=== PATIENT | male | born 1945 | race Caucasian/White ===

== ENCOUNTER 2017-05-30 15:02 | Inpatient (IN) | payer MEDICARE ==
[~2017-05-30] VITALS: Ht 172.7 cm; Wt 111.8 kg
[~2017-05-30 15:02] MED LIST: ACET325 PO; ASPI81 PO; ATOR80TA PO; BISA10R PR; CLON.1 PO; DOCU1CAP39 PO; DUONI INH; Docusate Sod/Senna PO; ENOX40P SQ; GUAI600 PO; LACT20SO4 PO; LEVA750T PO; LISI40TA PO; LORTA5 PO; MAGN30S PO; METO50CR PO; NITR.4 SL; NYSTT TOP; POLY17S PO; PROT40TA PO; SLO-500T2 PO; SPIR50TA21 PO; [UNRECOGNIZED DRUG - CODE] TOP
[2017-05-30 15:05] VITALS: BP 165/84; PULSE 63; RESP 18; TEMP 98.7; O2SAT 99
--- NOTE | 2017-05-30 15:31 | PD ---
HPI Chief Complaint: Neuro Symptoms/ Deficits Time Seen by Provider: 15:23 Travel History International Travel<30 days: No Contact w/Intl Traveler<30days: No Traveled to known affect area: No History of Present Illness HPI 72yo M with PMH of HTN, CAD here with c/o left upper extremity weakness. 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 Still does not feel that it has return to baseline. Pt initially appear to have a left sided facial droop but he did not notice it. Denies any fever, chest pain, sob, n/v, abdominal pain, focal numbness. Denies any history of CVA. PFSH Past Medical History Hx Anticoagulant Therapy: Yes Cardiovascular Problems: Yes (CABG) High Cholesterol: Yes Diminished Hearing: No Hypertension: Yes Myocardial Infarction: Yes Past Surgical History Appendectomy: Yes Coronary Artery Bypass Graft: Yes Other Surgery: Yes (AAA SURGERY apr coiling) Social History Alcohol Use: Yes (3 BEERS 2X A WEEK) Tobacco Use: Yes (1/2PPD) Substance Use: No Allergies-Medications (Allergen,Severity, Reaction): Coded Allergies: No Known Allergies (Verified , 07/01/14) Reported Meds & Prescriptions Reported Meds & Active Scripts Active Reported Diphenhydramine (Diphenhydramine HCl) 25 Mg Cap 25 Mg PO Q6H PRN Tylenol (Acetaminophen) 325 Mg Tab 650 Mg PO Q4H PRN Aspirin Adult Low Strength (Aspirin) 81 Mg Tabdr 81 Mg PO DAILY Aldactone (Spironolactone) 25 Mg Tab 25 Mg PO DAILY Lipitor (Atorvastatin Calcium) 80 Mg Tab 80 Mg PO HS Lisinopril 40 Mg Tab 20 Mg PO DAILY Metoprolol Succinate ER 24 HR (Metoprolol Succinate) 100 Mg Tab 50 Mg PO DAILY Review of Systems Except as stated in HPI: all other systems reviewed are Neg Physical Exam Narrative GENERAL: 72yo M not in distress. SKIN: Focused skin assessment warm/dry. HEAD: Atraumatic. Normocephalic. EYES: Left pupil had cataract surgery and pupil is more superior than right. EOMI. ENT: No nasal bleeding or discharge. Mucous membranes pink and moist. NECK: Trachea midline. No JVD. CARDIOVASCULAR: Regular rate and rhythm. No murmur appreciated. RESPIRATORY: No accessory muscle use. Clear to auscultation. Breath sounds equal bilaterally. GASTROINTESTINAL: Abdomen soft, non-tender, nondistended. MUSCULOSKELETAL: No obvious deformities. No clubbing. No cyanosis. No edema. NEUROLOGICAL: Awake and alert. Slight left facial droop. Sensation equal in bilateral face, arms and legs. Decreased left hand tool/die maker compare to right. Normal speech. PSYCHIATRIC: Appropriate mood and affect; insight and judgment normal. Data Data Last Documented VS Vital Signs Date Time Temp Pulse Resp B/P (MAP) Pulse Ox O2 Delivery O2 Flow Rate FiO2 05/30/17 15:14 56 18 98 Room Air 05/30/17 15:05 98.7 165/84 (111) Orders Orders Ct Brain W/O Iv Contrast(Rout) (05/30/17 ) Complete Blood Count With Diff (05/30/17 15:23) Basic Metabolic Panel (Bmp) (05/30/17 15:23) Prothrombin Time / Inr (Pt) (05/30/17 15:23) Act Partial Throm Time (Ptt) (05/30/17 15:23) Admit Order (Ed Use Only) (05/30/17 18:02) Aspirin (Aspirin) (05/30/17 18:15) Labs Laboratory Tests Test 05/30/17 15:38 White Blood Count 8.1 TH/MM3 Red Blood Count 4.52 MIL/MM3 Hemoglobin 15.8 GM/DL Hematocrit 45.5 % Mean Corpuscular Volume 100.6 FL Mean Corpuscular Hemoglobin 35.0 PG Mean Corpuscular Hemoglobin Concent 34.8 % Red Cell Distribution Width 13.7 % Platelet Count 146 TH/MM3 Mean Platelet Volume 7.6 FL Neutrophils (%) (Auto) 74.1 % Lymphocytes (%) (Auto) 14.1 % Monocytes (%) (Auto) 7.2 % Eosinophils (%) (Auto) 3.7 % Basophils (%) (Auto) 0.9 % Neutrophils # (Auto) 6.0 TH/MM3 Lymphocytes # (Auto) 1.1 TH/MM3 Monocytes # (Auto) 0.6 TH/MM3 Eosinophils # (Auto) 0.3 TH/MM3 Basophils # (Auto) 0.1 TH/MM3 CBC Comment DIFF FINAL Differential Comment Prothrombin Time 11.2 SEC Prothromb Time International Ratio 1.1 RATIO Activated Partial Thromboplast Time 26.8 SEC Blood Urea Nitrogen 21 MG/DL Creatinine 1.57 MG/DL Random Glucose 86 MG/DL Calcium Level 9.2 MG/DL Sodium Level 138 MEQ/L Potassium Level 5.2 MEQ/L Chloride Level 107 MEQ/L Carbon Dioxide Level 26.0 MEQ/L Anion Gap 5 MEQ/L Estimat Glomerular Filtration Rate 44 ML/MIN MDM Medical Decision Making Medical Screen Exam Complete: Yes Emergency Medical Condition: Yes Differential Diagnosis Lacunar infarct vs. TIA vs. ICH Narrative Course 72yo M here with left upper extremity weakness and noticed it when he couldnt turn the page of the newspaper. Pt appears to have a slight left facial droop on exam but does not really noticed it. Still feels weak in left hand. Labs reviewed, no leukocytosis. K in upper limit at 5.2. Creatinine mildly elevated at 1.57. CT brain showed no evidence of acute intracranial pathology. Extensive cerebrovascular disease. Pt given aspirin. Discussed with Dr. Brantley and accepted to her service. Diagnosis Primary Impression: TIA (transient ischemic attack) Qualified Codes: G45.9 - Transient cerebral ischemic attack, unspecified Admitting Information Admitting Physician Requests: Georgia Cavazos DO May 30, 2017 15:31
[2017-05-30 15:43] LABS: BASOPHIL # 0.1 TH/MM3 (0-0.2); BASOPHIL % 0.9 % (0.0-2.0); EOSINOPHIL # 0.3 TH/MM3 (0-0.4); EOSINOPHIL % 3.7 % (0.0-4.0); HEMATOCRIT 45.5 % (39.0-51.0); HEMO FLAGS DIFF FINAL; LYMPH % 14.1 % (9.0-44.0); LYMPHOCYTE # 1.1 TH/MM3 (1.0-4.8); MEAN CELL VOLUME 100.6 FL (80.0-100.0); MEAN CORPUSCULAR HGB CONC 34.8 % (32.0-36.0); MONO % 7.2 % (0.0-8.0); NEUT % 74.1 % (16.0-70.0); PLATELET COUNT 146 TH/MM3 (150-450); RED BLOOD COUNT 4.52 MIL/MM3 (4.50-5.90); RED CELL DISTRIBUTION WIDTH 13.7 % (11.6-17.2); WHITE BLOOD COUNT 8.1 TH/MM3 (4.0-11.0)
[2017-05-30 15:55] LABS: APTT (PATIENT) 26.8 SEC (24.3-30.1); INTERNATIONAL NORMALIZED RATIO 1.1 RATIO; PROTHROMBIN TIME - PATIENT 11.2 SEC (9.8-11.6)
[2017-05-30] MEDS ORDERED: LISI40TA PO (16:00)
[2017-05-30] MEDS ORDERED: TYLE325T PO (16:00)
[2017-05-30] MEDS ORDERED: LIPI80TA PO (16:00)
[2017-05-30] MEDS ORDERED: DIPH25CA PO (16:00)
[2017-05-30] MEDS ORDERED: SPIR25 PO (16:00)
[2017-05-30] MEDS ORDERED: METO1TAB43 PO (16:00)
[2017-05-30] MEDS ORDERED: ASPI81TA16 PO (16:00)
[2017-05-30 16:05] LABS: POTASSIUM 5.2 MEQ/L (3.5-5.1)
--- NOTE | 2017-05-30 17:42 | RADRPT ---
EXAM DATE/TIME: 05/30/2017 17:30 [facility] COMPARISON: No previous studies available for comparison. INDICATIONS : Left upper extremity weakness today. RADIATION DOSE: 50.97 CTDIvol (mGy) MEDICAL HISTORY : Cardiovascular disease. Hypertension. SURGICAL HISTORY : Appendectomy. ENCOUNTER: Initial ACUITY: 1 day PAIN SCALE: 0/10 LOCATION: Bilateral head TECHNIQUE: Multiple contiguous axial images were obtained of the head. Using automated exposure control and adj ustment of the mA and/or kV according to patient size, radiation dose was kept as low as reasonably a chievable to obtain optimal diagnostic quality images. DICOM format image data is available electro nically for review and comparison. FINDINGS: Noncontrast axial head CT demonstrates the ventricles to be normal in size and configuration with a n ormal sulcal pattern. No acute intracranial hemorrhage, acute cortical infarction, mass or midline sh ift is seen. There is decreased density in the periventricular white matter consistent with small ves neptali vascular disease not unexpected in a patient of this age. Posterior fossa structures are unremark able. There is severe calcification and dolichoectasia of the vertebrobasilar system. There is also e xtensive disease involving the carotid siphons bilaterally. Bone windows are unremarkable. CONCLUSION: 1. No evidence of acute intracranial pathology. No masses are identified. 2. Extensive cerebrovascular disease as above Conner Santa MD on May 30, 2017 at 17:37 Board Certified Radiologist. This report was verified electronically.
[2017-05-30] MEDS ORDERED: GLUCAGON 1 MG/ML VIAL OTHER PRN (18:15)
[2017-05-30] MEDS ORDERED: DEXTROSE 50% IN WATER 50 ML VIAL(D50) IV PUSH PRN (18:15)
[2017-05-30] MEDS ORDERED: SODIUM CHLORIDE 0.9% FLUSH 10 ML FLUSH IV FLUSH PRN (18:15)
[2017-05-30] MEDS ORDERED: ASPIRIN 325 MG TAB PO ONE (18:15)
[2017-05-30] MEDS: SODIUM CHLOR 0.9% 1000 ML INJ 1,000 ML IV SCH (18:22)
--- NOTE | 2017-05-30 18:55 | HHI.HP ---
[facility] Admission Diagnosis TIA Diagnoses: Travel History International Travel<30 Days: No Contact w/Intl Traveler <30 Da: No Traveled to Known Affected Are: No History of Present Illness 72-year-old male with a past medical history significant for hypertension, hyperlipidemia and coronary artery disease presents with left upper extremity weakness. The patient reports he was trying to read the paper this morning when he couldn't make his left hand grasp objects or turning them page. He reports the weakness is improving however he still lacks strength in that hand. CT of the head was negative for acute process. Patient is alert and oriented 3. Review of Systems Denies fever or chills Denies blurry vision, otorrhea, rhinorrhea Denies sore throat and cough No chest pain, palpitations, shortness of breath No abdominal pain Denies constipation/diarrhea/nausea/vomiting Left hand weakness No rashes Past Family Social History Past Medical History Coronary artery disease Hypertension Hyperlipidemia Past Surgical History Endovascular AAA repair/revision on 05/16/17 at the [facility] Endovascular AAA repair 9 years ago with stent placement CABG 4 in 1984 Right ankle surgery Right biceps tendon repair Reported Medications Reported Meds & Active Scripts Active Reported Diphenhydramine (Diphenhydramine HCl) 25 Mg Cap 25 Mg PO Q6H PRN Tylenol (Acetaminophen) 325 Mg Tab 650 Mg PO Q4H PRN Aspirin Adult Low Strength (Aspirin) 81 Mg Tabdr 81 Mg PO DAILY Aldactone (Spironolactone) 25 Mg Tab 25 Mg PO DAILY Lipitor (Atorvastatin Calcium) 80 Mg Tab 80 Mg PO HS Lisinopril 40 Mg Tab 20 Mg PO DAILY Metoprolol Succinate ER 24 HR (Metoprolol Succinate) 100 Mg Tab 50 Mg PO DAILY Allergies: Coded Allergies: No Known Allergies (Verified , 07/01/14) Family History Mother with coronary artery disease. Social History Smokes 5-6 cigarettes daily. Has been smoking since 16 years of age. Drinks approximately 3 beers 2 times a week. Denies illicit drugs. Physical Exam Vital Signs Vital Signs Date Time Temp Pulse Resp B/P (MAP) Pulse Ox O2 Delivery O2 Flow Rate FiO2 05/30/17 15:14 56 18 98 Room Air 05/30/17 15:05 98.7 63 18 165/84 (111) 99 Physical Exam GENERAL: Obese male sitting up in bed SKIN: No rashes, ecchymoses or lesions. Cool and dry. HEAD: Atraumatic. Normocephalic. No temporal or scalp tenderness. EYES: Pupils equal round and reactive. Extraocular motions intact. No scleral icterus. No injection or drainage. ENT: Nose without bleeding, purulent drainage or septal hematoma. Throat without erythema, tonsillar hypertrophy or exudate. Uvula midline. Airway patent. NECK: Trachea midline. No JVD or lymphadenopathy. Supple, nontender, no meningeal signs. CARDIOVASCULAR: Regular rate and rhythm without murmurs, gallops, or rubs. RESPIRATORY: Clear to auscultation. Breath sounds equal bilaterally. No wheezes , rales, or rhonchi. GASTROINTESTINAL: Abdomen soft, non-tender, nondistended. No hepato-splenomegaly , or palpable masses. No guarding. MUSCULOSKELETAL: Left lower extremity with nonpitting edema, patient reports this is unchanged from baseline and secondary to vein harvest in that leg. No joint tenderness, effusion, or edema noted. No calf tenderness. NEUROLOGICAL: Awake and alert. Cranial nerves II through XII intact. Normal speech. 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 Mild left-sided mouth droop. Laboratory Laboratory Tests Test 05/30/17 15:38 05/30/17 18:05 White Blood Count 8.1 Red Blood Count 4.52 Hemoglobin 15.8 Hematocrit 45.5 Mean Corpuscular Volume 100.6 Mean Corpuscular Hemoglobin 35.0 Mean Corpuscular Hemoglobin Concent 34.8 Red Cell Distribution Width 13.7 Platelet Count 146 Mean Platelet Volume 7.6 Neutrophils (%) (Auto) 74.1 Lymphocytes (%) (Auto) 14.1 Monocytes (%) (Auto) 7.2 Eosinophils (%) (Auto) 3.7 Basophils (%) (Auto) 0.9 Neutrophils # (Auto) 6.0 Lymphocytes # (Auto) 1.1 Monocytes # (Auto) 0.6 Eosinophils # (Auto) 0.3 Basophils # (Auto) 0.1 CBC Comment DIFF FINAL Differential Comment Prothrombin Time 11.2 Prothromb Time International Ratio 1.1 Activated Partial Thromboplast Time 26.8 Blood Urea Nitrogen 21 Creatinine 1.57 Random Glucose 86 Calcium Level 9.2 Sodium Level 138 Potassium Level 5.2 Chloride Level 107 Carbon Dioxide Level 26.0 Anion Gap 5 Estimat Glomerular Filtration Rate 44 Result Diagram: 05/30/17153705/30/171537 Caprini VTE Risk Assessment Caprini VTE Risk Assessment: Mod/High Risk (score >= 2) Caprini Risk Assessment Model Point Value = 1 Point Value = 2 Point Value = 3 Point Value = 5 Age 41-60 Minor surgery BMI > 25 kg/m2 Swollen legs Varicose veins or History of unexplained or recurrent spontaneous Oral contraceptives or hormone replacement Sepsis (< 1 month) Serious lung disease, including pneumonia (< 1 month) Abnormal pulmonary function Acute myocardial infarction Congestive heart failure (< 1 month) History of inflammatory bowel disease Medical patient at bed rest Age 61-74 Arthroscopic surgery Major open surgery (> 45 min) Laparoscopic surgery (> 45 min) Malignancy Confined to bed (> 72 hours) Immobilizing plaster cast Central venous access Age >= 75 History of VTE Family history of VTE Factor V Leiden Prothrombin 27276H Lupus anticoagulant Anticardiolipin antibodies Elevated serum homocysteine Heparin-induced thrombocytopenia Other congenital or acquired thrombophilia Stroke (< 1 month) Elective arthroplasty Hip, pelvis, or leg fracture Acute spinal cord injury (< 1 month) Prophylaxis Regimen Total Risk Factor Score Risk Level Prophylaxis Regimen 0-1 Low Early ambulation 2 Moderate Order ONE of the following: *Sequential Compression Device (SCD) *Heparin 5000 units SQ BID 3-4 Higher Order ONE of the following medications: *Heparin 5000 units SQ TID *Enoxaparin/Lovenox 40 mg SQ daily (WT < 150 kg, CrCl > 30 mL/min) *Enoxaparin/Lovenox 30 mg SQ daily (WT < 150 kg, CrCl > 10-29 mL/min) *Enoxaparin/Lovenox 30 mg SQ BID (WT < 150 kg, CrCl > 30 mL/min) AND/OR *Sequential Compression Device (SCD) 5 or more Highest Order ONE of the following medications: *Heparin 5000 units SQ TID (Preferred with Epidurals) *Enoxaparin/Lovenox 40 mg SQ daily (WT < 150 kg, CrCl > 30 mL/min) *Enoxaparin/Lovenox 30 mg SQ daily (WT < 150 kg, CrCl > 10-29 mL/min) *Enoxaparin/Lovenox 30 mg SQ BID (WT < 150 kg, CrCl > 30 mL/min) AND *Sequential Compression Device (SCD) Assessment and Plan Assessment and Plan 72-year-old male with a past medical history of hypertension, coronary artery disease and hyperlipidemia presents with left hand weakness since this morning. 1. TIA/CVA CT head negative for acute process MRI, MRA, carotid ultrasound pending Echo pending Neurology consulted, appreciate recommendations 2. XOCHITL Creatinine 1.57, was 1.1 in 2014 IV fluid hydration Avoid nephrotoxic agents Follow-up BMP 3. Hypertension/hyperlipidemia/CAD Continue home medications FEN Heart healthy diet once swallow study completed NS at 70 cc/hr Electrolytes: Monitor and replete prn Heparin Case discussed with ER physician Jena Brantley MD May 30, 2017 18:55
[2017-05-30 19:11] VITALS: BP 130/79; PULSE 56; RESP 19; O2SAT 97
--- NOTE | 2017-05-30 19:38 | RADRPT ---
EXAM DATE/TIME: 05/30/2017 18:41 [facility] COMPARISON: No previous studies available for comparison. INDICATIONS : Transient ischemic attack. MEDICAL HISTORY : Hypercholesterolemia. Hypertension. Myocardial infarction. Anticoagulant therapy. Coronary artery dis ease. SURGICAL HISTORY : Appendectomy. CABG. Abdominal aortic aneurysm repair. Right arm surgery. Right ankle surgery. ENCOUNTER: Initial ACUITY: 1 day PAIN SCORE: 0/10 LOCATION: Bilateral neck PEAK SYSTOLIC VELOCITIES (cm/sec): ICA/CCA RATIO: Right: 1.2 Left: 1.0 ICA: Right: 82 Left: 71 CCA: Right: 71 Left: 70 ECA: Right: 65 Left: 87 VERTEBRAL: Right: 41 antegrade Left: 34 antegrade Elevated flow velocities and ICA/CCA ratios have been found to correlate with increased degrees of vessel stenosis, calculated as percentage of diameter relative to a normal segment of distal ICA/CCA FINDINGS: RIGHT CAROTID: No significant stenosis is visualized. The waveforms are within normal limits. LEFT CAROTID: No significant stenosis is visualized. The waveforms are within normal limits. VERTEBRAL ARTERIES: Antegrade flow is seen in both vertebral arteries. MISCELLANEOUS: None. CONCLUSION: No hemodynamically significant stenosis. Manuel Curry MD on May 30, 2017 at 19:35 Board Certified Radiologist. This report was verified electronically.
[2017-05-30 20:30] LABS: HEMOGLOBIN A1a 1.1 %; HEMOGLOBIN A1b 0.8 %; HEMOGLOBIN Ao 86.7 %; HEMOGLOBIN F 0.9 %; HEMOGLOBIN LA1C 1.8 %; HEMOGLOBIN P3 3.4 %
[2017-05-30 20:54] VITALS: BP 128/83; PULSE 58; RESP 17; TEMP 98; O2SAT 96
[2017-05-30] MEDS: SODIUM CHLORIDE 0.9% FLUSH 10 ML FLUSH IV FLUSH SCH (21:00)
[2017-05-30] MEDS: INSULIN ASPART SUPPLEMENTAL SCALE SQ SCH (21:00)
[2017-05-30 21:05] VITALS: PULSE 53
--- NOTE | 2017-05-30 21:09 | RADRPT ---
EXAM DATE/TIME: 05/30/2017 20:09 [facility] COMPARISON: No previous studies available for comparison. INDICATIONS : MRI clearance. MEDICAL HISTORY : None. SURGICAL HISTORY : Coronary artery stent. AAA repair. ENCOUNTER: Initial ACUITY: 1 day PAIN SCORE: 0/10 LOCATION: Bilateral abdomen. FINDINGS: Aortic stent graft is noted. There is an embolization coil in the expected region of the left interna l iliac artery. The gallbladder is filled with calcified gallstones. Degenerative changes are noted t hroughout the lumbar and lower thoracic spine. Degenerative changes also involving the hips. CONCLUSION: 1. Embolization coil in the expected region of the left internal iliac artery. 2. Aortic stent graft noted. 3. Cholelithiasis. 4. Degenerative changes involving lumbar spine and lower thoracic spine and bilateral hips. Manuel Curry MD on May 30, 2017 at 21:04 Board Certified Radiologist. This report was verified electronically.
[2017-05-30] MEDS: HEPARIN SODIUM - SQ 10,000 UNITS/ML VIAL SQ SCH (21:24)
[2017-05-30] MEDS: ATORVASTATIN 80 MG TAB PO SCH (21:24)
[2017-05-31] VITALS (14 sets, daily range): BP systolic 107–143; BP diastolic 65–88; PULSE 51–64; RESP 16–18; TEMP 97.7–99.1; O2SAT 94–96
[2017-05-31 05:32] LABS: AUTOMATED NEUTROPHIL # 4.1 TH/MM3 (1.8-7.7); BASOPHIL # 0.1 TH/MM3 (0-0.2); BASOPHIL % 0.8 % (0.0-2.0); EOSINOPHIL # 0.3 TH/MM3 (0-0.4); EOSINOPHIL % 4.6 % (0.0-4.0); HEMATOCRIT 42.3 % (39.0-51.0); HEMO FLAGS DIFF FINAL; LYMPH % 22.9 % (9.0-44.0); LYMPHOCYTE # 1.5 TH/MM3 (1.0-4.8); MEAN CORPUSCULAR HEMOGLOBIN 34.1 PG (27.0-34.0); MEAN CORPUSCULAR HGB CONC 34.1 % (32.0-36.0); MONO % 8.3 % (0.0-8.0); NEUT % 63.4 % (16.0-70.0); PLATELET COUNT 119 TH/MM3 (150-450); RED BLOOD COUNT 4.22 MIL/MM3 (4.50-5.90); RED CELL DISTRIBUTION WIDTH 13.9 % (11.6-17.2); WHITE BLOOD COUNT 6.4 TH/MM3 (4.0-11.0)
[2017-05-31] MEDS: HEPARIN SODIUM - SQ 10,000 UNITS/ML VIAL SQ SCH ×3 (05:58→21:35)
[2017-05-31 06:07] LABS: HDL CHOLESTEROL 32.7 MG/DL (40.0-60.0)
[2017-05-31 06:12] LABS: BICARBONATE 25.6 MEQ/L (21.0-32.0)
[2017-05-31 06:13] LABS: POTASSIUM 4.6 MEQ/L (3.5-5.1)
[2017-05-31] MEDS: INSULIN ASPART SUPPLEMENTAL SCALE SQ SCH ×4 (08:00→21:00)
[2017-05-31] MEDS: SODIUM CHLORIDE 0.9% FLUSH 10 ML FLUSH IV FLUSH SCH ×2 (09:00→21:35)
[2017-05-31] MEDS: METOPROLOL SUCCINATE 50 MG EXTENDED RELEASE TAB PO SCH (09:08)
[2017-05-31] MEDS: LISINOPRIL 20 MG TAB PO SCH (09:08)
[2017-05-31] MEDS: SPIRONOLACTONE 25 MG TAB PO SCH (09:08)
[2017-05-31] MEDS: SODIUM CHLOR 0.9% 1000 ML INJ 1,000 ML IV SCH ×2 (09:09→21:34)
[2017-05-31] MEDS ORDERED: INFLUENZA VIRUS VACCINE (QUADRIVALENT) 0.5 ML SYR IM ONE (10:00)
[2017-05-31 12:44] LABS: MAGNESIUM 1.5 MG/DL (1.5-2.5)
[2017-05-31] MEDS: CLOPIDOGREL 75 MG TAB PO SCH (14:53)
--- NOTE | 2017-05-31 15:02 | ECHRPT ---
Indication: CVA/TIA CONCLUSIONS Normal left ventricular size. Wall thickness is normal. The left ventricular systolic function is mildly reduced with an estimated ejection fraction in the range of 45- 50%. Mitral annular calcification is present. Trace mitral valve regurgitation. Aortic valve sclerosis is present. The pulmonary valve is not well visualized. BP: 118 / 65 HR: 82 Rhythm: MEASUREMENTS (Male / Female) Normal Values Technical Quality:Good 2D ECHO LV Diastolic Diameter PLAX 5.7 cm 4.2 - 5.9 / 3.9 - 5.3 cm LV Systolic Diameter PLAX 4.6 cm IVS Diastolic Thickness 1.1 cm 0.6 - 1.0 / 0.6 - 0.9 cm LVPW Diastolic Thickness 0.9 cm 0.6 - 1.0 / 0.6 - 0.9 cm LV Relative Wall Thickness 0.3 M-MODE Aortic Root Diameter MM 3.3 cm AV Cusp Separation MM 2.2 cm DOPPLER Mitral E Point Velocity 120.0 cm/s Mitral A Point Velocity 97.5 cm/s Mitral E to A Ratio 1.2 TR Peak Velocity 261.0 cm/s TR Peak Gradient 27.2 mmHg FINDINGS LEFT VENTRICLE Normal left ventricular size. Wall thickness is normal. The left ventricular systolic function is mildly reduced with an estimated ejection fraction in the range of 45- 50%. RIGHT VENTRICLE Normal right ventricular size and systolic function. LEFT ATRIUM The left atrial size is normal. RIGHT ATRIUM The right atrial size is normal. ATRIAL SEPTUM Normal atrial septal thickness without atrial level shunting by limited color doppler interrogation. AORTA The aortic root and proximal ascending aorta are normal in size on limited imaging. MITRAL VALVE Mitral annular calcification is present. Trace mitral valve regurgitation. AORTIC VALVE Aortic valve sclerosis is present. TRICUSPID VALVE Structurally normal tricuspid valve. No tricuspid valve stenosis or regurgitation. PULMONARY VALVE The pulmonary valve is not well visualized. VESSELS The inferior vena cava is normal in size. PERICARDIUM No pericardial effusion. Murtaza Montelongo MD (Electronically Signed) Final Date:31 May 2017 15:01
[2017-05-31] MEDS ORDERED: ATORVASTATIN 10 MG TAB PO ONE (16:15)
--- NOTE | 2017-05-31 16:17 | MB ---
cc: MARIA LUZ MCINTYRE M.D. DATE OF CONSULTATION: 05/31/2017 REASON FOR CONSULTATION: HISTORY OF PRESENT ILLNESS: The patient is a 72-year-old seen in neurological evaluation because of left upper extremity weakness. The patient describes that he had symptoms yesterday morning and he is not sure if he woke up but this way or if his symptoms evolved after he had a bowl of cereal. The symptoms have persisted. He denies prior history of a stroke or TIA but describes that some couple of years ago he had some generalized weakness and apparently there was no clear diagnosis for that. He has history of a hypertension, coronary artery disease, hyperlipidemia, history of CABG many years ago. ACTIVE MEDICATIONS: 1. Lisinopril 2. Lipitor 3. Aspirin 4. Aldactone. MEDICATIONS AT HOME: 1. Baby aspirin daily. PHYSICAL EXAMINATION: An alert oriented man. He does have slight left facial weakness and very mild but definitive left hand weakness. His hand is flexor and fine single coordination and extensor finger movements are mild to moderately impaired. Interestingly he has right ulnar innervated hand muscle wasting but not on the left and evidently this is chronic. His right pupil is larger and the left is slightly irregular and this is from bilateral eye/cataract surgery in the past. He has a left plantar extensor response. The right is possibly extensor as well. Muscle stretch reflexes were 1+, but diminished at the ankles. IMAGING STUDIES: The CT brain and carotid ultrasound studies were unremarkable. ASSESSMENT Left face and upper extremity weakness likely from an ischemic cerebrovascular event. He has been on aspirin. Other studies have been requested including MRI and it is unclear if he can have an MRI or not. I am going to add Plavix. Echocardiogram requested. I am looking to see if he has had an EEG. Reportedly he has been in sinus rhythm. LDL is 88. Would suggest continuing statin and the goal would be to bring LDL below 70 or even below 60. SCDs. Thank you for asking us to assist in his care. I will follow him with you. Maria Luz Mcintyre MD [facility] /2:33 PM /3:46 PM
--- NOTE | 2017-05-31 16:40 | HHI.PR ---
Subjective Remarks 72-year-old male with a past medical history significant for hypertension, hyperlipidemia and coronary artery disease presents with left upper extremity weakness. The patient reports he was trying to read the paper this morning when he couldn't make his left hand grasp objects or turning them page. He reports the weakness is improving however he still lacks strength in that hand. CT of the head was negative for acute process. Patient is alert and oriented 3. Follow up on patient with LUE weakness. Patient seen and examined. Patient continues to have weakness in the LUE with slight improvement. Patient denies any acute medical complaints. MRI cervical spine ordered and imaging dept trying to ascertain if patient is able to have MRI study done s/p embolization coil. He denies any dizziness, lightheadedness, vision changes or headache. He denies any chest pain or shortness of breath. Denies any nausea, vomiting or abdominal pain. Objective Vitals Vital Signs Date Time Temp Pulse Resp B/P (MAP) Pulse Ox O2 Delivery O2 Flow Rate FiO2 05/31/17 15:28 98.3 57 18 134/78 (96) 94 05/31/17 10:57 97.7 51 16 137/74 (95) 94 05/31/17 07:34 59 05/31/17 07:30 98.5 56 18 118/65 (82) 96 05/31/17 05:56 98.2 54 18 122/72 (89) 96 05/31/17 04:22 55 18 119/69 (86) 96 05/31/17 04:08 56 05/31/17 01:41 98.1 58 17 107/67 (80) 96 05/31/17 00:06 54 05/30/17 21:05 53 05/30/17 20:54 98.0 58 17 128/83 (98) 96 05/30/17 19:11 56 19 130/79 (96) 97 Room Air I/O 05/30/17 05/30/17 05/30/17 05/31/17 05/31/17 05/31/17 07:00 15:00 23:00 07:00 15:00 23:00 Intake Total 240 ml 1000 ml Balance 240 ml 1000 ml Intake Oral 240 ml IV Total 1000 ml # Voids 2 Result Diagram: 05/31/17 0418 05/31/17 0418 Other Results Laboratory Tests Test 05/30/17 15:38 05/30/17 18:05 05/31/17 04:18 White Blood Count 8.1 TH/MM3 6.4 TH/MM3 Red Blood Count 4.52 MIL/MM3 4.22 MIL/MM3 Hemoglobin 15.8 GM/DL 14.4 GM/DL Hematocrit 45.5 % 42.3 % Mean Corpuscular Volume 100.6 FL 100.0 FL Mean Corpuscular Hemoglobin 35.0 PG 34.1 PG Mean Corpuscular Hemoglobin Concent 34.8 % 34.1 % Red Cell Distribution Width 13.7 % 13.9 % Platelet Count 146 TH/MM3 119 TH/MM3 Mean Platelet Volume 7.6 FL 7.6 FL Neutrophils (%) (Auto) 74.1 % 63.4 % Lymphocytes (%) (Auto) 14.1 % 22.9 % Monocytes (%) (Auto) 7.2 % 8.3 % Eosinophils (%) (Auto) 3.7 % 4.6 % Basophils (%) (Auto) 0.9 % 0.8 % Neutrophils # (Auto) 6.0 TH/MM3 4.1 TH/MM3 Lymphocytes # (Auto) 1.1 TH/MM3 1.5 TH/MM3 Monocytes # (Auto) 0.6 TH/MM3 0.5 TH/MM3 Eosinophils # (Auto) 0.3 TH/MM3 0.3 TH/MM3 Basophils # (Auto) 0.1 TH/MM3 0.1 TH/MM3 CBC Comment DIFF FINAL DIFF FINAL Differential Comment Prothrombin Time 11.2 SEC Prothromb Time International Ratio 1.1 RATIO Activated Partial Thromboplast Time 26.8 SEC Blood Urea Nitrogen 21 MG/DL 20 MG/DL Creatinine 1.57 MG/DL 1.29 MG/DL Random Glucose 86 MG/DL 81 MG/DL Calcium Level 9.2 MG/DL 8.4 MG/DL Sodium Level 138 MEQ/L 141 MEQ/L Potassium Level 5.2 MEQ/L 4.6 MEQ/L Chloride Level 107 MEQ/L 109 MEQ/L Carbon Dioxide Level 26.0 MEQ/L 25.6 MEQ/L Anion Gap 5 MEQ/L 6 MEQ/L Estimat Glomerular Filtration Rate 44 ML/MIN 55 ML/MIN Hemoglobin A1c 4.8 % Phosphorus Level 2.9 MG/DL Magnesium Level 1.5 MG/DL Triglycerides Level 182 MG/DL Cholesterol Level 157 MG/DL LDL Cholesterol 88 MG/DL HDL Cholesterol 32.7 MG/DL Cholesterol/HDL Ratio 4.80 RATIO Thyroid Stimulating Hormone 3rd Gen 2.950 uIU/ML Imaging Last Impressions Head CT 05/30/17 0000 Signed Impressions: Service Date/Time: Tuesday, May 30, 2017 17:30 - CONCLUSION: 1. No evidence of acute intracranial pathology. No masses are identified. 2. Extensive cerebrovascular disease as above Conner Santa MD Carotid Artery Ultrasound 05/30/17 0000 Signed Impressions: Service Date/Time: Tuesday, May 30, 2017 18:41 - CONCLUSION: No hemodynamically significant stenosis. Manuel Curry MD Abdomen X-Ray 05/30/17 0000 Signed Impressions: Service Date/Time: Tuesday, May 30, 2017 20:09 - CONCLUSION: 1. Embolization coil in the expected region of the left internal iliac artery. 2. Aortic stent graft noted. 3. Cholelithiasis. 4. Degenerative changes involving lumbar spine and lower thoracic spine and bilateral hips. Manuel Curry MD Objective Remarks GENERAL: Well-developed well-nourished obese male, INAD. Awake and alert. No facial droop or slurred speech appreciated. SKIN: No rashes, ecchymoses or lesions. Cool and dry. HEAD: Atraumatic. Normocephalic. EYES: Pupils equal round and reactive. Extraocular motions intact. No scleral icterus. No injection or drainage. ENT: Nose without bleeding or purulent drainage. Airway patent. MMM. NECK: Trachea midline. No JVD or lymphadenopathy. Supple, nontender, no meningeal signs. CARDIOVASCULAR: Regular rate and rhythm without murmurs, gallops, or rubs. RESPIRATORY: Clear to auscultation. Breath sounds equal bilaterally. No wheezes , rales, or rhonchi. GASTROINTESTINAL: Abdomen soft, non-tender, nondistended. No hepato-splenomegaly , or palpable masses. No guarding. MUSCULOSKELETAL: Left lower extremity with nonpitting edema, patient reports this is unchanged from baseline and secondary to vein harvest in that leg. NEUROLOGICAL: Awake and alert. Able to move all extremities spontaneously. Motor and sensory grossly intact except for a weak left upper extremity 3/5. Normal speech. Insight and judgment is good Mood and behavior is appropriate Procedures NONE Medications and IVs Current Medications Medications (Trade) Dose Ordered Sig/Vivian Route Start Time Stop Time Status Last Admin (NS Flush) 2 ml BID IV FLUSH 05/30/17 21:00 (NS Flush) 2 ml UNSCH PRN IV FLUSH 05/30/17 18:15 Sodium Chloride 1,000 ml @ 70 mls/hr [id number] IV 05/30/17 18:05 05/31/17 09:09 (NovoLOG SUPPLEMENTAL SCALE) 1 ACHS SQ 05/30/17 21:00 (D50w (Vial) Inj) 50 ml UNSCH PRN IV PUSH 05/30/17 18:15 (Glucagon Inj) 1 mg UNSCH PRN OTHER 05/30/17 18:15 (Heparin Inj) 5,000 units Q8H SQ 05/30/17 22:00 05/31/17 14:52 (Lipitor) 80 mg HS PO 05/30/17 21:00 05/30/17 21:24 (Aldactone) 25 mg DAILY PO 05/31/17 09:00 05/31/17 09:08 (Prinivil) 20 mg DAILY PO 05/31/17 09:00 05/31/17 09:08 (Toprol Xl) 50 mg DAILY PO 05/31/17 09:00 05/31/17 09:08 (Aspirin) 325 mg DAILY PO 06/01/17 09:00 (Plavix) 75 mg DAILY PO 05/31/17 14:45 05/31/17 14:53 (Lipitor) 10 mg DAILY PO 06/01/17 09:00 UNV A/P Assessment and Plan 72-year-old male with a past medical history of hypertension, coronary artery disease and hyperlipidemia presents with left hand weakness since this morning. 1. TIA/CVA CT head negative for acute process MRI, MRA pending. MRI cervical spine pending. Discussed with Madison WOODSON, radiology attempting to obtain clearance to proceed forward with imaging study s /p embolization coil Carotid ultrasound negative Echo showing mildly reduced systolic function with an estimated ejection fraction in the range of 45-50%. Neurology consulted, appreciate recommendations. - likely from an ischemic cerebrovascular event. Continue on aspirin 325mg daily. Started on Plavix 75mg daily. Continue on statin therapy. Hgb A1c 4.[address] eval completed, regular diet with thin liquids recommended Evaluated by PT and OT who recommended outpatient OT 2. XOCHITL Creatinine 1.57, was 1.1 in 2015 Improved after IVF hydration Avoid nephrotoxic agents 3. Hypertension/hyperlipidemia/CAD Continue home medications FEN Heart healthy diet Electrolytes: Monitor and replete prn Heparin Discussed with patient, nursing staff, Dr. Cuevas and Dr. Mcintyre Needs MRI not available not done yet Discharge Planning Pending neurology clearance Attending Statement The exam, history, and the medical decision-making described in the above note were completed with the assistance of the mid-level provider. I reviewed and agree with the findings presented. I attest that I had a [id number] encounter with the patient on the same day, and personally performed and documented my assessment and findings in the medical record. Marlena Veloz May 31, 2017 16:40 Donavon Cuevas DO May 31, 2017 16:43
[2017-05-31] MEDS ORDERED: diphenhydrAMINE HCL 25 MG CAP PO PRN (17:30)
[2017-05-31] MEDS: ATORVASTATIN 80 MG TAB PO SCH (21:34)
--- NOTE | 2017-05-31 22:42 | EKG ---
Date Performed: 05/31/2017 Time Performed: 16:38:47 PTAGE: 72 years EKG: SINUS BRADYCARDIA POSSIBLE INFERIOR MYOCARDIAL INFARCTION BORDERLINE ECG PREVIOUS TRACING : 07/01/2014 13.12 Compared to prior tracing no significant change DOCTOR: Yessica Espinosa Interpretating Date/Time 05/31/2017 22:41:43
[2017-06-01] VITALS (10 sets, daily range): BP systolic 122–148; BP diastolic 71–82; PULSE 52–65; RESP 18–24; TEMP 97.4–98.8; O2SAT 93–95
[2017-06-01] MEDS: HEPARIN SODIUM - SQ 10,000 UNITS/ML VIAL SQ SCH ×3 (05:14→20:59)
[2017-06-01] MEDS: INSULIN ASPART SUPPLEMENTAL SCALE SQ SCH ×4 (08:00→21:00)
--- NOTE | 2017-06-01 08:53 | HHI.PR ---
Subjective Remarks Follow up on patient with LUE weakness. Patient seen and examined. Patient reports weakness left upper extremity is improved some. He denies any new medical complaints. Denies any new onset weakness. Denies any dizziness, headaches, lightheadedness, numbness/tingling or vision changes. Denies any fever or chills. Denies any chest pain or shortness of breath. Denies any nausea, vomiting or abdominal pain. He is requesting ketchup with his breakfast. Objective Vitals Vital Signs Date Time Temp Pulse Resp B/P (MAP) Pulse Ox O2 Delivery O2 Flow Rate FiO2 06/01/17 07:20 98.5 52 22 148/80 (102) 94 06/01/17 03:47 98.0 56 18 122/73 (89) 95 06/01/17 00:00 57 05/31/17 23:28 99.1 58 18 124/69 (87) 95 05/31/17 20:13 98.5 64 18 143/88 (106) 95 05/31/17 19:40 56 05/31/17 16:00 54 05/31/17 15:28 98.3 57 18 134/78 (96) 94 05/31/17 12:05 58 05/31/17 10:57 97.7 51 16 137/74 (95) 94 I/O 05/31/17 05/31/17 05/31/17 06/01/17 06/01/17 06/01/17 07:00 15:00 23:00 07:00 15:00 23:00 Intake Total 240 ml 1000 ml Balance 240 ml 1000 ml Intake Oral 240 ml IV Total 1000 ml # Voids 2 Result Diagram: 05/31/17 0418 05/31/17 0418 Imaging Last Impressions Head CT 05/30/17 0000 Signed Impressions: Service Date/Time: Tuesday, May 30, 2017 17:30 - CONCLUSION: 1. No evidence of acute intracranial pathology. No masses are identified. 2. Extensive cerebrovascular disease as above Conner Santa MD Carotid Artery Ultrasound 05/30/17 0000 Signed Impressions: Service Date/Time: Tuesday, May 30, 2017 18:41 - CONCLUSION: No hemodynamically significant stenosis. Manuel Curry MD Abdomen X-Ray 05/30/17 0000 Signed Impressions: Service Date/Time: Tuesday, May 30, 2017 20:09 - CONCLUSION: 1. Embolization coil in the expected region of the left internal iliac artery. 2. Aortic stent graft noted. 3. Cholelithiasis. 4. Degenerative changes involving lumbar spine and lower thoracic spine and bilateral hips. Manuel Curry MD Objective Remarks GENERAL: Well-developed well-nourished obese male, INAD. Awake and alert. Sitting up in bed eating breakfast. No facial droop or slurred speech appreciated. SKIN: Warm and dry. HEAD: Atraumatic. Normocephalic. EYES: Extraocular motions intact. No scleral icterus. No injection or drainage. ENT: Nose without bleeding or purulent drainage. Airway patent. MMM. NECK: Trachea midline. CARDIOVASCULAR: Bradycardic. (+)murmur present. RESPIRATORY: Clear to auscultation. Breath sounds equal bilaterally. No wheezes , rales, or rhonchi. GASTROINTESTINAL: Abdomen soft, non-tender, nondistended. No hepato-splenomegaly , or palpable masses. No guarding. MUSCULOSKELETAL: Left lower extremity with nonpitting edema, patient reports this is unchanged from baseline and secondary to vein harvest in that leg. NEUROLOGICAL: Awake and alert. Able to move all extremities spontaneously. Motor and sensory grossly intact except for a weak left upper extremity 4/5, improving. Normal speech. Procedures NONE Medications and IVs Current Medications Medications (Trade) Dose Ordered Sig/Vivian Route Start Time Stop Time Status Last Admin (NS Flush) 2 ml BID IV FLUSH 05/30/17 21:00 05/31/17 21:35 (NS Flush) 2 ml UNSCH PRN IV FLUSH 05/30/17 18:15 (NovoLOG SUPPLEMENTAL SCALE) 1 ACHS SQ 05/30/17 21:00 (D50w (Vial) Inj) 50 ml UNSCH PRN IV PUSH 05/30/17 18:15 (Glucagon Inj) 1 mg UNSCH PRN OTHER 05/30/17 18:15 (Heparin Inj) 5,000 units Q8H SQ 05/30/17 22:00 06/01/17 05:14 (Lipitor) 80 mg HS PO 05/30/17 21:00 05/31/17 21:34 (Aldactone) 25 mg DAILY PO 05/31/17 09:00 12/5/17 09:08 (Prinivil) 20 mg DAILY PO 05/31/17 09:00 05/31/17 09:08 (Toprol Xl) 50 mg DAILY PO 05/31/17 09:00 05/31/17 09:08 (Aspirin) 325 mg DAILY PO 06/01/17 09:00 (Plavix) 75 mg DAILY PO 05/31/17 14:45 05/31/17 14:53 (Benadryl) 25 mg HS PRN PO 05/31/17 17:30 05/31/17 21:35 A/P Assessment and Plan 72-year-old male with a past medical history of hypertension, coronary artery disease and hyperlipidemia presents with left hand weakness since this morning. 1. TIA/CVA CT head negative for acute process MRI, MRA pending. MRI cervical spine pending. Radiology [facility] to [facility] forward with imaging study s/p embolization coil Carotid ultrasound negative Echo showing mildly reduced systolic function with an estimated ejection fraction in the range of 45-50%. Neurology consulted, appreciate recommendations. - likely from an ischemic cerebrovascular event. Continue on aspirin 325mg daily. Started on Plavix 75mg daily. Continue on statin therapy with goal LDL below 60 or 70.. Hgb A1c 4.[address] eval completed, regular diet with thin liquids recommended Evaluated by PT and OT who recommended outpatient OT 2. XOCHITL Creatinine 1.57, was 1.1 in 2015 Improved after IVF hydration Avoid nephrotoxic agents 3. Hypertension/hyperlipidemia/CAD Continue home medications 4. Bradycardic Asymptomatic Decrease dose of Toprol XL FEN Heart healthy diet Electrolytes: Monitor and replete prn Heparin Discussed with patient, nursing staff, Dr. Richmond Discharge Planning Pending MRI results and neurology clearance Marlena Veloz Jun 01, 2017 08:53
[2017-06-01] MEDS ORDERED: ASPIRIN 325 MG TAB PO SCH (09:00)
[2017-06-01] MEDS ORDERED: ATORVASTATIN 10 MG TAB PO SCH (09:00)
--- NOTE | 2017-06-01 09:06 | HHI.PR ---
Review/Management Daily Summary 06/01 little better left hand deficits pending mri study keep current meds possible d/c after mri Subjective Subjective Comments No acute events reported No headache No chest pain No dyspnea Active Medications Current Medications Medications (Trade) Dose Ordered Sig/Vivian Route Start Time Stop Time Status Last Admin (NS Flush) 2 ml BID IV FLUSH 05/30/17 21:00 05/31/17 21:35 (NS Flush) 2 ml UNSCH PRN IV FLUSH 05/30/17 18:15 (NovoLOG SUPPLEMENTAL SCALE) 1 ACHS SQ 05/30/17 21:00 (D50w (Vial) Inj) 50 ml UNSCH PRN IV PUSH 05/30/17 18:15 (Glucagon Inj) 1 mg UNSCH PRN OTHER 05/30/17 18:15 (Heparin Inj) 5,000 units Q8H SQ 05/30/17 22:00 06/01/17 05:14 (Lipitor) 80 mg HS PO 05/30/17 21:00 05/31/17 21:34 (Aldactone) 25 mg DAILY PO 05/31/17 09:00 05/31/17 09:08 (Prinivil) 20 mg DAILY PO 05/31/17 09:00 05/31/17 09:08 (Toprol Xl) 50 mg DAILY PO 05/31/17 09:00 05/31/17 09:08 (Aspirin) 325 mg DAILY PO 06/01/17 09:00 (Plavix) 75 mg DAILY PO 05/31/17 14:45 05/31/17 14:53 (Benadryl) 25 mg HS PRN PO 05/31/17 17:30 05/31/17 21:35 Allergies Allergies Coded Allergies No Known Allergies (Verified07/01/14) Exam I&O / VS Vital Signs Date Time Temp Pulse Resp B/P (MAP) Pulse Ox O2 Delivery O2 Flow Rate FiO2 06/01/17 07:20 98.5 52 22 148/80 (102) 94 06/01/17 03:47 98.0 56 18 122/73 (89) 95 06/01/17 00:00 57 05/31/17 23:28 99.1 58 18 124/69 (87) 95 05/31/17 20:13 98.5 64 18 143/88 (106) 95 05/31/17 19:40 56 05/31/17 16:00 54 05/31/17 15:28 98.3 57 18 134/78 (96) 94 05/31/17 12:05 58 05/31/17 10:57 97.7 51 16 137/74 (95) 94 Objective Micro and Labs Laboratory Tests Test 05/30/17 15:38 05/30/17 18:05 05/31/17 04:18 Mean Corpuscular Volume 100.6 FL (80.0-100.0) Mean Corpuscular Hemoglobin 35.0 PG (27.0-34.0) 34.1 PG (27.0-34.0) Platelet Count 146 TH/MM3 (150-450) 119 TH/MM3 (150-450) Neutrophils (%) (Auto) 74.1 % (16.0-70.0) Blood Urea Nitrogen 21 MG/DL (7-18) 20 MG/DL (7-18) Creatinine 1.57 MG/DL (0.60-1.30) Potassium Level 5.2 MEQ/L (3.5-5.1) Estimat Glomerular Filtration Rate 44 ML/MIN (>89) 55 ML/MIN (>89) Red Blood Count 4.22 MIL/MM3 (4.50-5.90) Monocytes (%) (Auto) 8.3 % (0.0-8.0) Eosinophils (%) (Auto) 4.6 % (0.0-4.0) Calcium Level 8.4 MG/DL (8.5-10.1) Chloride Level 109 MEQ/L (98-107) Triglycerides Level 182 MG/DL (42-150) HDL Cholesterol 32.7 MG/DL (40.0-60.0) Nazia Mcintyre MD Jun 01, 2017 09:06
[2017-06-01] MEDS: LISINOPRIL 20 MG TAB PO SCH (09:25)
[2017-06-01] MEDS: SPIRONOLACTONE 25 MG TAB PO SCH (09:25)
[2017-06-01] MEDS: METOPROLOL SUCCINATE 50 MG EXTENDED RELEASE TAB PO SCH (09:25)
[2017-06-01] MEDS: SODIUM CHLORIDE 0.9% FLUSH 10 ML FLUSH IV FLUSH SCH ×2 (09:25→20:58)
[2017-06-01] MEDS: CLOPIDOGREL 75 MG TAB PO SCH (09:25)
--- NOTE | 2017-06-01 13:17 | RADRPT ---
EXAM DATE/TIME: 06/01/2017 09:59 [facility] COMPARISON: MRA BRAIN W/O CONTRAST, June 01, 2017, 9:59. INDICATIONS : Lkeft arm numbness and weakness. MEDICAL HISTORY : Hypertension. Hypercholesterolemia. SURGICAL HISTORY : Appendectomy. CABG AAA repair, rt arm and ankle ENCOUNTER: Subsequent ACUITY: 3 day PAIN SCORE: 0/10 LOCATION: cranial TECHNIQUE: Multiplanar, multisequence MRI of the brain was performed without contrast. FINDINGS: Small punctate foci of restricted diffusion are identified in the right temporal lobe, right basal ga nglia and along the convexity of the right frontal lobe. There is no evidence of associated mass effe ct, hemorrhage or edema. Susceptibility weighted imaging demonstrates punctate areas of susceptibility in both cerebral hemisp heres consistent with old micro-bleeds. Significant cerebral white matter disease is noted. There is periventricular and deep white matter hy perintensities with confluent hyperintensity in the centrum semiovale bilaterally. CSF spaces are unremarkable for age. Significant arteriomegaly is identified of the vertebrobasilar vessels. CONCLUSION: 1. Punctate foci of restricted diffusion in the right cerebral hemisphere consistent with small embol ic strokes. 2. Old micro-bleeds in the cerebra hemispheres which characteristically are related to either chronic hypertension, amyloid angiopathy or vasculopathy. 3. No evidence of acute hemorrhage. 4. Moderate cerebra white matter disease characteristic of chronic microvascular ischemic changes. 5. Posterior fossa arteriomegaly. William Anuglo MD on June 01, 2017 at 13:06 Board Certified Radiologist. This report was verified electronically.
--- NOTE | 2017-06-01 13:26 | RADRPT ---
EXAM DATE/TIME: 06/01/2017 09:59 [facility] COMPARISON: No previous studies available for comparison. INDICATIONS : Left arm numbness and weakness. MEDICAL HISTORY : Hypertension. Hypercholesterolemia. SURGICAL HISTORY : Appendectomy. CABG AAA repair, rt ankle, rt arm ENCOUNTER: Subsequent ACUITY: 3 day PAIN SCORE: 0/10 LOCATION: cranial Please note a normal MRA of the brain does not entirely exclude the possibility of a small aneurysm, nor the possibility of distal intracranial vessel disease. TECHNIQUE: 3D time of flight MRA was performed. Source images, multiplanar STS MIP, and 3D volume MIP reconstru ctions were reviewed. FINDINGS: There is excellent visualization of the major intracranial arteries out to the second-order branch ve ssels. Anterior circulation: Mild luminal irregularity is identified in the carotid siphons which are otherwise widely patent. The proximal anterior and middle cerebral vessels are patent without significant stenosis. There is no e vidence of intraluminal filling defects or aneurysm. No vascular displacement is noted. Posterior circulation: Severe arterial mainly is identified involving the distal left vertebral artery and basilar artery. T he vertebral artery measures 7 mm in diameter. The basilar artery measures 9.7 mm in diameter. There appears to be intraluminal filling defect in both the vertebral and basilar artery. A high grade sten osis is seen at the junction of the vertebral and basilar artery. Irregular luminal changes are evident throughout. CONCLUSION: 1. Severe vasculopathy of the vertebrobasilar system which includes arteriomegaly, aneurysmal enlarge ment of the distal left vertebral artery and basilar artery, intraluminal filling defects characteris tic of thrombus or organized plaque and high grade stenosis at the left vertebral/basilar junction. 2. Luminal irregularity involving the proximal anterior and middle cerebral arteries which may repres ent a described disease. William Angulo MD on June 01, 2017 at 13:16 Board Certified Radiologist. This report was verified electronically.
--- NOTE | 2017-06-01 13:37 | RADRPT ---
EXAM DATE/TIME: 06/01/2017 09:59 [facility] COMPARISON: No previous studies available for comparison. INDICATIONS : Left arm numbness and weakness. MEDICAL HISTORY : Hypertension. Hypercholesterolemia. SURGICAL HISTORY : Appendectomy. CABG AAA repair, rt arm and ankle ENCOUNTER: Subsequent ACUITY: 3 day PAIN SCORE: 0/10 LOCATION: cranial TECHNIQUE: Multiplanar, multisequence MRI examination of the cervical spine was performed. FINDINGS: Alignment: Straightening of normal lordosis is noted. Craniocervical and cervical vertebral body alignment are o therwise intact. Osseous structures and facet joints: Vertebral body height is well-maintained. There is no evidence of acute compression fracture. Posteri or elements are intact. No significant arthropathy. Intervertebral disc spaces: Moderate to severe degenerative disc disease is noted. C2-3: Moderate degenerative disc disease with posterior disc osteophyte complex causing mild to moder ate spinal stenosis and mild to moderate bilateral foraminal encroachment. There is slight abutment a nd effacement of the anterior surface of the spinal cord. C3-4: Severe degenerative disc disease. There is a large left paracentral disc osteophyte complex and protrusion causing moderate to severe central spinal stenosis and severe left foraminal encroachment . Significant compression of the spinal cord is noted. C4-5: Moderate degenerative disc disease with disc space narrowing and marginal disc osteophyte compl ex. There is mild to moderate bilateral foraminal encroachment. There is no evidence of epidural disc herniation or significant spinal stenosis. C5-6: Moderate to severe degenerative disc disease. There is a large central and left paracentral dis c osteophyte complex causing significant epidural effacement and mild to moderate spinal cord effacem ent. Moderate to severe bilateral foraminal stenosis is noted. C6-7: Advanced degenerative disc disease is noted. There is a large central disc osteophyte complex c ausing significant spinal stenosis and spinal cord effacement. Abnormal signal intensity is identifie d within the spinal cord with focal T2 hyperintensity. C7-T1: A small to moderate size central and right paracentral disc extrusion which abuts and mildly e ffaces the spinal cord is noted. Neurologic structures: Significant focal spinal cord effacement at C3-4 and C6-7. Ultrasound intensity within the spinal cord at C6-7 characteristic of focal myelomalacia. Multilevel foraminal encroachment as described above. CONCLUSION: 1. Advanced degenerative disc disease 2. Significant central spinal stenosis with cord compression at C3-4 and C6-7 as described. 3. 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 4. Multilevel foraminal encroachment from large disc osteophyte complexes as described above. 5. No acute bony abnormality. William Angulo MD on June 01, 2017 at 13:24 Board Certified Radiologist. This report was verified electronically.
[2017-06-01] MEDS ORDERED: HEPARIN-D5W 25,000 U/250 ML 250 ML IV PRN ×2 (14:45→16:00)
--- NOTE | 2017-06-01 14:57 | HHI.DS ---
Discharge Summary Admission Date May 30, 2017 at 18:03 Discharge Date: Jun 01, 2017 Admitting Diagnosis TIA (1) Embolic stroke ICD Code: I63.9 - Cerebral infarction, unspecified (2) Brain aneurysm ICD Code: I67.1 - Cerebral aneurysm, nonruptured (3) Hemiparesis ICD Code: G81.90 - Hemiplegia, unspecified affecting unspecified side (4) Cervical stenosis of spinal canal ICD Code: M48.02 - Spinal stenosis, cervical region (5) Vertebral artery stenosis ICD Code: I65.09 - Occlusion and stenosis of unspecified vertebral artery (6) Degenerative disc disease, cervical ICD Code: M50.30 - Other cervical disc degeneration, unspecified cervical region (7) Cervical cord myelomalacia ICD Code: G95.89 - Other specified diseases of spinal cord Procedures NONE Brief History - From Admission 72-year-old male with a past medical history significant for hypertension, hyperlipidemia and coronary artery disease presents with left upper extremity weakness. The patient reports he was trying to read the paper this morning when he couldn't make his left hand grasp objects or turning them page. He reports the weakness is improving however he still lacks strength in that hand. CT of the head was negative for acute process. Patient is alert and oriented 3. CBC/BMP: 05/31/17 0418 05/31/17 0418 Significant Findings Laboratory Tests Test 05/30/17 15:38 05/30/17 18:05 05/31/17 04:18 Mean Corpuscular Volume 100.6 FL (80.0-100.0) Mean Corpuscular Hemoglobin 35.0 PG (27.0-34.0) 34.1 PG (27.0-34.0) Platelet Count 146 TH/MM3 (150-450) 119 TH/MM3 (150-450) Neutrophils (%) (Auto) 74.1 % (16.0-70.0) Blood Urea Nitrogen 21 MG/DL (7-18) 20 MG/DL (7-18) Creatinine 1.57 MG/DL (0.60-1.30) Potassium Level 5.2 MEQ/L (3.5-5.1) Estimat Glomerular Filtration Rate 44 ML/MIN (>89) 55 ML/MIN (>89) Red Blood Count 4.22 MIL/MM3 (4.50-5.90) Monocytes (%) (Auto) 8.3 % (0.0-8.0) Eosinophils (%) (Auto) 4.6 % (0.0-4.0) Calcium Level 8.4 MG/DL (8.5-10.1) Chloride Level 109 MEQ/L (98-107) Triglycerides Level 182 MG/DL (42-150) HDL Cholesterol 32.7 MG/DL (40.0-60.0) Imaging Last Impressions Head Magnetic Resonance Angiography 06/01/17 Signed Impressions: Service Date/Time: Thursday, June 01, 2017 09:59 - CONCLUSION: 1. Severe vasculopathy of the vertebrobasilar system which includes arteriomegaly, aneurysmal enlargement of the distal left vertebral artery and basilar artery, intraluminal filling defects characteristic of thrombus or organized plaque and high grade stenosis at the left vertebral/basilar junction. 2. Luminal irregularity involving the proximal anterior and middle cerebral arteries which may represent a described disease. William Angulo MD Cervical Spine MRI 06/01/17 Signed Impressions: Service Date/Time: Thursday, June 01, 2017 09:59 - CONCLUSION: 1. Advanced degenerative disc disease 2. Significant central spinal stenosis with cord compression at C3-4 and C6-7 as described. 3. 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 4. Multilevel foraminal encroachment from large disc osteophyte complexes as described above. 5. No acute bony abnormality. William Angulo MD Brain MRI 06/01/17 Signed Impressions: Service Date/Time: Thursday, June 01, 2017 09:59 - CONCLUSION: 1. Punctate foci of restricted diffusion in the right cerebral hemisphere consistent with small embolic strokes. 2. Old micro-bleeds in the cerebra hemispheres which characteristically are related to either chronic hypertension, amyloid angiopathy or vasculopathy. 3. No evidence of acute hemorrhage. 4. Moderate cerebra white matter disease characteristic of chronic microvascular ischemic changes. 5. Posterior fossa arteriomegaly. William Angulo MD Head CT 05/30/17 Signed Impressions: Service Date/Time: Tuesday, May 30, 2017 17:30 - CONCLUSION: 1. No evidence of acute intracranial pathology. No masses are identified. 2. Extensive cerebrovascular disease as above Conner Santa MD Carotid Artery Ultrasound 05/30/17 0000 Signed Impressions: Service Date/Time: Tuesday, May 30, 2017 18:41 - CONCLUSION: No hemodynamically significant stenosis. Manuel Curry MD Abdomen X-Ray 05/30/17 0000 Signed Impressions: Service Date/Time: Tuesday, May 30, 2017 20:09 - CONCLUSION: 1. Embolization coil in the expected region of the left internal iliac artery. 2. Aortic stent graft noted. 3. Cholelithiasis. 4. Degenerative changes involving lumbar spine and lower thoracic spine and bilateral hips. Manuel Curry MD PE at Discharge GENERAL: Well-developed well-nourished obese male, INAD. Awake and alert. Sitting up in bed eating breakfast. No facial droop or slurred speech appreciated. SKIN: Warm and dry. HEAD: Atraumatic. Normocephalic. EYES: Extraocular motions intact. No scleral icterus. No injection or drainage. ENT: Nose without bleeding or purulent drainage. Airway patent. MMM. NECK: Trachea midline. CARDIOVASCULAR: Bradycardic. (+)murmur present. RESPIRATORY: Clear to auscultation. Breath sounds equal bilaterally. No wheezes , rales, or rhonchi. GASTROINTESTINAL: Abdomen soft, non-tender, nondistended. No hepato-splenomegaly , or palpable masses. No guarding. MUSCULOSKELETAL: Left lower extremity with nonpitting edema, patient reports this is unchanged from baseline and secondary to vein harvest in that leg. NEUROLOGICAL: Awake and alert. Able to move all extremities spontaneously. Motor and sensory grossly intact except for a weak left upper extremity 4/5, improving. Normal speech. Pt update on day of discharge Follow up on patient with LUE weakness. Patient seen and examined. Patient reports weakness left upper extremity is improved some. He denies any new medical complaints. Denies any new onset weakness. Denies any dizziness, headaches, lightheadedness, numbness/tingling or vision changes. Denies any confusion or slurred speech. Denies any fever or chills. Denies any chest pain or shortness of breath. Denies any nausea, vomiting or abdominal pain. The patient was hoping to go home today. He still has weakness in the left upper extremity. Discussed with the transfer center and the pt was accepted by neurosurgeon Dr. Matthews at [facility]. Hospital Course Patient presented with left hand weakness admitted with possible TIA/CVA. Neurology consulted the patient likely suffered from ischemic cerebrovascular event. Patient started on Plavix and aspirin and continued on high-dose statin therapy. Echo completed showing mildly reduced systolic function with EF of 45- 50%. Patient seen in consultation by speech therapy and passed a swallow evaluation with recommendation for regular diet with thin liquids. Patient was evaluated by PT and OT and recommended continuation of OT as outpatient. Patient's left upper extremity weakness improved some. He did not develop any new complaints of weakness, numbness/tingling, confusion or slurred speech. MRI of the brain and cervical spine ordered as well as MRA which were delayed secondary to [facility]'s [facility] for previous AAA repair. MRI of the brain was obtained showing punctate foci of restricted diffusion in the right cerebral hemisphere consistent with small embolic strokes. MRA revealed severe vasculopathy of the vertebrobasilar system which includes arteriomegaly, aneurysmal enlargement of the distal left vertebral artery and basilar artery, intraluminal filling defects characteristic of thrombus or organized plaque and high grade stenosis at the left vertebral/basilar junction. MRI of the cervical spine revealed multiple level degenerative disc disease with subsequent stenosis and myelomalacia of the cord at C6 7. Findings were discussed with the neurologist who recommended transfer to [facility] for surgical intervention. Transfer service was contacted. Dr. Matthews accepted patient for transfer to neurosurgery service ICU at [facility]. See hospital course as above. Discussed with radiology, neurology, neurosurgery , and stroke-neurologist at [facility]. The pt will be discharged on a heparin gtt and ASA and Plavix will be held. Pt Condition on Discharge: Stable Discharge Disposition: Disch to Another Hospital Discharge Time: > 30 minutes Discharge Instructions DIET: Follow Instructions for: Heart Healthy Diet Activities you can perform: See Additionl Instruction Activities to Avoid: Driving Other Activity Instructions: No driving, swimming alone or caring for small children unassisted Follow up Referrals: Neurology - 1 Week with Nazia Mcintyre MD PCP Follow-up - 1 Week New Medications: Heparin Sod,Porcine/0.9 % NaCl (Heparin 25,000 Unit/250 ml-Ns) 25,000 Unit/250 Ml (100 Unit/Ml) Iv.soln 1 UNIT IV CONTINUOUS for ANEURYSM, #2 UNIT Low dose Heparin drip without bolus (AK protocol) Continued Medications: Acetaminophen (Tylenol) 325 Mg Tab 650 MG PO Q4H PRN for PAIN 1-10 AND/OR FEVER >101F, TAB 0 Refills Atorvastatin (Lipitor) 80 Mg Tab 80 MG PO HS for Cholesterol Management, #30 TAB 0 Refills Lisinopril (Lisinopril) 40 Mg Tab 20 MG PO DAILY for Blood Pressure Management, #30 TAB 0 Refills Metoprolol Succinate ER 24 HR (Metoprolol Succinate ER 24 HR) 100 Mg Tab 50 MG PO DAILY, #30 TAB 0 Refills Spironolactone (Aldactone) 25 Mg Tab 25 MG PO DAILY, #30 TAB 0 Refills Discontinued Medications: Aspirin DR (Aspirin Adult Low Strength) 81 Mg Tabdr 81 MG PO DAILY, TAB Diphenhydramine (Diphenhydramine) 25 Mg Cap 25 MG PO Q6H PRN for NASAL CONGESTION, CAP 0 Refills Additional Information The exam, history, and the medical decision-making described in the above note were completed with the assistance of the mid-level provider. I reviewed and agree with the findings presented. I attest that I had a [id number] encounter with the patient on the same day, and personally performed and documented my assessment and findings in the medical record. Marlena Veloz Jun 01, 2017 14:57 Malik Richmond DO Jun 01, 2017 16:38
[2017-06-01] MEDS ORDERED: [UNRECOGNIZED DRUG - CODE] IV (15:01)
[2017-06-01] MEDS ORDERED: ENALAPRILAT 1.25 MG/ML VIAL IV PUSH PRN (15:15)
[2017-06-01 16:23] LABS: HEMATOCRIT 44.5 % (39.0-51.0); MEAN CELL VOLUME 100.6 FL (80.0-100.0); MEAN CORPUSCULAR HEMOGLOBIN 34.2 PG (27.0-34.0); PLATELET COUNT 125 TH/MM3 (150-450); RED BLOOD COUNT 4.43 MIL/MM3 (4.50-5.90); RED CELL DISTRIBUTION WIDTH 13.8 % (11.6-17.2); REVIEW FLAG FINAL; WHITE BLOOD COUNT 7.3 TH/MM3 (4.0-11.0)
[2017-06-01 16:34] LABS: APTT (PATIENT) 27.3 SEC (24.3-30.1); INTERNATIONAL NORMALIZED RATIO 1.1 RATIO; PROTHROMBIN TIME - PATIENT 11.3 SEC (9.8-11.6)
[2017-06-01] MEDS: ATORVASTATIN 80 MG TAB PO SCH (20:58)
== END 2017-06-02 00:06 | disposition short-term general hospital (02) | DRG 65 ==
LOC: NEPC 15:02 → NEDA 18:03 → NEPGCP 20:30 → OBSVTOIN 06-01 16:30
PROVIDERS: ADMIT Hospitalist; ATTEND Hospitalist
DX: I63.112 Cerebral infarction due to embolism of left vertebral artery (principal); N17.9 Acute kidney failure, unspecified; G95.89 Other specified diseases of spinal cord; R00.1 Bradycardia, unspecified; I72.6 Aneurysm of vertebral artery; I72.5 Aneurysm of other precerebral arteries; G83.24 Monoplegia of upper limb affecting left nondominant side; I10 Essential (primary) hypertension; I25.10 Atherosclerotic heart disease of native coronary artery without angina pectoris; I25.2 Old myocardial infarction; R29.810 Facial weakness; E78.5 Hyperlipidemia, unspecified; E66.9 Obesity, unspecified; M48.02 Spinal stenosis, cervical region; M50.30 Other cervical disc degeneration, unspecified cervical region; F17.210 Nicotine dependence, cigarettes, uncomplicated; Z23 Encounter for immunization; Z68.37 Body mass index [BMI] 37.0-37.9, adult; Z95.1 Presence of aortocoronary bypass graft
CPT/HCPCS: 70450; 70544; 70551; 72141; 74000; 80048; 80061; 82948; 83036; 83735; 84100; 84443; 85025; 85027; 85610; 85730; 90686; 93005; 93306; 93880; 96360; 96361; 96372; G0378; G8987-GO; G8987-GP; G8988-GO; G8988-GP; G8996-GN; G8997-GN; G8998-GN; J1644; J7030; Q2038

== ENCOUNTER 2017-08-03 13:59 | Emergency (ER) | payer OTHER, MEDICARE ==
[~2017-08-03] VITALS: Ht 172.7 cm; Wt 113.0 kg
[2017-08-03 13:59] VITALS: BP 147/74; PULSE 52; RESP 16; TEMP 99.1; O2SAT 97
[~2017-08-03 13:59] MED LIST changes: -ACET325 PO; -ASPI81 PO; -ATOR80TA PO; -BISA10R PR; -CLON.1 PO; -DOCU1CAP39 PO; -DUONI INH; -Docusate Sod/Senna PO; -ENOX40P SQ; -GUAI600 PO; -LACT20SO4 PO; -LEVA750T PO; +LIPI80TA PO; -LORTA5 PO; -MAGN30S PO; +METO1TAB43 PO; -METO50CR PO; -NITR.4 SL; -NYSTT TOP; -POLY17S PO; -PROT40TA PO; -SLO-500T2 PO; +SPIR25 PO; -SPIR50TA21 PO; +TYLE325T PO; +[UNRECOGNIZED DRUG - CODE] IV; -[UNRECOGNIZED DRUG - CODE] TOP
[2017-08-03] MEDS ORDERED: PLAV75TA29 PO (14:55)
[2017-08-03] MEDS ORDERED: ASPI-516 CHEW (14:55)
--- NOTE | 2017-08-03 15:42 | PD ---
HPI Chief Complaint: Bleeding Time Seen by Provider: 14:49 Travel History International Travel<30 days: No Contact w/Intl Traveler<30days: No Traveled to known affect area: No History of Present Illness HPI Patient 72-year-old male presents emergency department for evaluation of right toe abrasion, he states he had this yesterday during a minor incident, states that [facility] and then when he took it off this morning to go in the shower warm water seem to trigger the bleeding again, he is worried that he is going to bleed to . Denies any pain denies any other injuries, denies any nausea vomiting diarrhea or weakness. States symptoms are moderate, right toe, associated signs and symptoms as above , context as above PFSH Past Medical History Hx Anticoagulant Therapy: Yes Blood Disorders: No Cancer: No Cardiovascular Problems: Yes (CABG Feb 08, 1985) High Cholesterol: Yes Chemotherapy: No Cerebrovascular Accident: Yes Diminished Hearing: No Endocrine: No Genitourinary: No Hypertension: Yes Musculoskeletal: No Neurologic: No Psychiatric: No Reproductive: No Respiratory: No Myocardial Infarction: Yes Radiation Therapy: No Past Surgical History Appendectomy: Yes Coronary Artery Bypass Graft: Yes Other Surgery: Yes (AAA SURGERY apr coiling) Social History Alcohol Use: No (rare) Tobacco Use: No Substance Use: No Allergies-Medications (Allergen,Severity, Reaction): Coded Allergies: No Known Allergies (Verified , 07/01/14) Reported Meds & Prescriptions Reported Meds & Active Scripts Active Reported Aspirin 81 Mg Chew 81 Mg CHEW DAILY Plavix (Clopidogrel Bisulfate) 75 Mg Tab 75 Mg PO DAILY Aldactone (Spironolactone) 25 Mg Tab 25 Mg PO DAILY Lipitor (Atorvastatin Calcium) 80 Mg Tab 80 Mg PO HS Lisinopril 40 Mg Tab 20 Mg PO DAILY Metoprolol Succinate ER 24 HR (Metoprolol Succinate) 100 Mg Tab 50 Mg PO DAILY Review of Systems Except as stated in HPI: all other systems reviewed are Neg Physical Exam Narrative GENERAL: Well-nourished, well-developed patient. SKIN: Focused skin assessment warm/dry. There is a minimal abrasion on the medial aspect of the right great toe, there is minimal oozing, the skin overall is intact and no indication for wound closure. No swelling HEAD: Normocephalic. EYES: No scleral icterus. No injection or drainage. NECK: Supple, trachea midline. No JVD or lymphadenopathy. CARDIOVASCULAR: Regular rate and rhythm without murmurs, gallops, or rubs. RESPIRATORY: Breath sounds equal bilaterally. No accessory muscle use. GASTROINTESTINAL: Abdomen soft, non-tender, nondistended. MUSCULOSKELETAL: No cyanosis, or edema. There is no bony tenderness on the lower extremity no swelling full nontender range of motion. BACK: Nontender without obvious deformity. No CVA tenderness. Data Data Last Documented VS Vital Signs Date Time Temp Pulse Resp B/P (MAP) Pulse Ox O2 Delivery O2 Flow Rate FiO2 08/03/17 16:32 (98) 08/03/17 13:59 99.1 52 16 97 Room Air Orders Orders Foot, Complete ([id number]) (08/03/17 ) Ed Discharge Order (08/03/17 16:19) MDM Medical Decision Making Medical Screen Exam Complete: Yes Emergency Medical Condition: Yes Differential Diagnosis Abrasion, significant bleeding highly unlikely, anemia highly unlikely, coagulopathy highly unlikely Narrative Course Patient room to the emergency department, no petechia and no purpura, minimal oozing, Surgicel was placed and bandage was placed, x-ray negative, discussed need follow with primary care physician or return to criteria. Stable for discharge per Last 24 hours Impressions Foot X-Ray 08/03/17 0000 Signed Impressions: Service Date/Time: Thursday, August 03, 2017 16:09 - CONCLUSION: Negative osteomyelitis about the great toe. Donavon hBatti MD FACR Diagnosis Primary Impression: Abrasion Additional Impression: Abrasion foot/toe Additional Instructions: Keep bandage on for 24 hours, then remove the bandage using warm water soak and then apply a bandage. Apply pressure if you start bleeding follow up with your PCP. Disposition: 01 DISCHARGE HOME Condition: Stable Manuel Nolan MD Aug 03, 2017 15:42
--- NOTE | 2017-08-03 16:39 | RADRPT ---
EXAM DATE/TIME: 08/03/2017 16:09 [facility] COMPARISON: No previous studies available for comparison. INDICATIONS : Right foot, 1st digit infection after laceration from fall. MEDICAL HISTORY : None. SURGICAL HISTORY : ORIF right foot. ENCOUNTER: Initial ACUITY: 2 days PAIN SCORE: 0/10 LOCATION: Right foot, 1st digit. FINDINGS: Previous fusion. Extensive degenerative changes are evident. Fracture is not appreciated. There is no evidence for ostomy myelitis. CONCLUSION: Negative osteomyelitis about the great toe. Donavon Bhatti MD FACR on August 03, 2017 at 16:35 Board Certified Radiologist. This report was verified electronically.
== END 2017-08-03 16:36 | disposition home or self-care (01) ==
LOC: NEPC 13:59
DX: S90.411A Abrasion, right great toe, initial encounter (principal); I10 Essential (primary) hypertension; I25.2 Old myocardial infarction; Z79.01 Long term (current) use of anticoagulants; X58.XXXA Exposure to other specified factors, initial encounter
CPT/HCPCS: 73630; 99283